=== PATIENT | male | born 1955 | race Caucasian/White ===

== ENCOUNTER → 2016-07-15 | Outpatient (CLI) | payer OTHER ==
[~2016-07-15] MED LIST: NOHOMEMEDICATIONS
[2016-07-15 11:29] LABS: CREATININE 1.2 mg/dL (0.7-1.3)
== END ==
LOC: ULTRA 07-14 15:49
PROVIDERS: Family Medicine
DX: R31.9 Hematuria, unspecified (principal); N28.1 Cyst of kidney, acquired; I10 Essential (primary) hypertension; I70.1 Atherosclerosis of renal artery; R10.9 Unspecified abdominal pain; N50.819 Testicular pain, unspecified

== ENCOUNTER → 2016-08-11 | Outpatient (CLI) | payer OTHER | LOC: ULTRA 13:59 | DX: K40.90 Unilateral inguinal hernia, without obstruction or gangrene, not specified as recurrent (principal); R10.32 Left lower quadrant pain ==

== ENCOUNTER → 2016-08-17 | Outpatient (CLI) | payer OTHER | LOC: MRI 02:49 | DX: R10.30 Lower abdominal pain, unspecified (principal); N50.811 Right testicular pain ==

== ENCOUNTER → 2018-05-10 | Outpatient (CLI) | payer OTHER | LOC: RAD 11:14 | DX: R05 Cough (principal) ==

== ENCOUNTER → 2018-06-06 | Outpatient (CLI) | payer OTHER | LOC: CAT 11:51 | DX: Z13.6 Encounter for screening for cardiovascular disorders (principal); E78.00 Pure hypercholesterolemia, unspecified; Z82.49 Family history of ischemic heart disease and other diseases of the circulatory system ==

== ENCOUNTER → 2018-06-21 | Outpatient (CLI) | payer OTHER ==
--- NOTE | ~2018-06-21 | MCT ---
[facility] [place] [address] METHACHOLINE CHALLENGE TEST Name: KRISTIE DUTTON Room #: REG HORTENCIA Campos#: [id number] ������������������ Admission: 06/21/18 ������������������ Attend Phys: Juan Rinaldi MD Discharge: ������������������ Date of : 53 Report #: [id number] THIS REPORT FOR: //name// COPIES FOR: AGE:������ 62 SEX/RACE:� M/C Height: 69 in Exam Date: 06/21/18 Weight: 165 lbs BTPS: X >> PRE BRONCHODILATOR: PREDICTED BEST %PRED FORCED VITAL CAPACITY (FRC) 4.11 L 4.83 LPM 117 % FORCED EXP VOL/SEC (FEV1) 3.28 L 3.48 FEV/FVC 106 % MAX MID-EXP FLOW (FEF 25-75) 3.33 L/SEC 2.57 L/SEC 77 % PEAK EXP FLOW RATE (FEF MAX) 8.27 L/MIN 8.08 L/MIN MED-VC RATIO (FEF 50/FEF 50) .09 Baseline: Phenol Saline Level 1: 0.025 mg/ml BEST %PRED %CHANGE BEST %PRED %CHANGE FVC 4.56 L 111 % -6 % FVC 4.66 L 113 % 2 % FEV1 3.17 L 97 % -9 % FEV1 3.23 L 98 % 2 % Level 2: 0.25 mg/ml Level 3: 2.5 mg/ml BEST %PRED %CHANGE BEST %PRED %CHANGE FVC 4.79 L 117 % 5 % FVC 4.88 L 119 % 7 % FEV1 3.29 L 100 % 4 % FEV1 3.32 L 101 % 5 % . Level 4: 10 mg/ml Level 5: 25 mg/ml BEST %PRED %CHANGE BEST %PRED %CHANGE FVC 4.70 L 114 % 3 % FVC 4.85 L 118 % 6 % FEV1 3.29 L 100 % 4 % FEV1 3.29 L 100 % 4 % Post Bronchodilator: 1st Treatment Post Bronchodilator: 2nd Treatment BEST %PRED %CHANGE BEST %PRED %CHANGE FVC 4.48 L 109 % -2 % FVC L % % FEV1 3.31 L 101 % 4 % FEV1 L % % Post Bronchodilator: 3rd Treatment BEST %PRED %CHANGE FVC L % % [address] [address] METHACHOLINE CHALLENGE TEST Name: KRISTIE DUTTON Room #: REG CLTri[facility]City [facility] CenterPhi.#: [id number] ������������������ Admission: 06/21/18 ������������������ Attend Phys: Juan Rinaldi MD Discharge: ������������������ Date of : 53 Report #: [id number] FEV1 L % % >> INTERPRETATION: CC: Juan Ni DATE OF SERVICE: 06/21/2018 METHACHOLINE CHALLENGE TEST Increasing doses of methacholine were utilized per protocol. Initial FEV1 was 3.48 liters and 106% predicted. With increasing doses of methacholine, there was no significant decline in pulmonary function. With increasing doses of methacholine, his FEV1 remained 3.29 liters (100%). IMPRESSION: Negative methacholine challenge test. ��������������������������������������������� ���������������������������������������� By: ��������������������������������������������� Juan Rinaldi MD /nt
== END ==
LOC: PUL 09:51
DX: R05 Cough (principal)

== ENCOUNTER 2018-08-25 15:15 | Emergency (ER) | payer OTHER ==
[~2018-08-25] VITALS: Ht 175.3 cm; Wt 74.8 kg
[2018-08-25] MEDS ORDERED: LIDOCAINE1 EACH TRANSDERM (16:26)
[2018-08-25] MEDS ORDERED: NAPROSYN500 MG PO (16:26)
[2018-08-25] MEDS ORDERED: HYDROCODONE-AP1 EAC6 PO (16:26)
[2018-08-25 17:18] VITALS: BP 122/74
== END 2018-08-25 16:30 | disposition home or self-care (01) ==
LOC: ER 15:15
DX: S20.212A Contusion of left front wall of thorax, initial encounter (principal); X50.1XXA Overexertion from prolonged static or awkward postures, initial encounter; Y92.89 Other specified places as the place of occurrence of the external cause; Y93.89 Activity, other specified; Y99.8 Other external cause status

== ENCOUNTER → 2020-02-11 | Outpatient (CLI) | payer OTHER ==
[~2020-02-11] MED LIST changes: +HYDROCODONE-AP1 EAC6 PO; +LIDOCAINE1 EACH TRANSDERM; +NAPROSYN500 MG PO
[2020-02-11 11:58] LABS: ABSOLUTE NEUTROPHILS 3.1 thou/uL (1.4-8.2); BASOPHILS 0.5 % (0.0-2.0); EOSINOPHILS 2.5 % (0.0-3.0); HEMATOCRIT 46.2 % (42.0-52.0); HEMOGLOBIN 16.1 gm/dL (14.0-18.0); LYMPHOCYTES 32.3 % (24.0-44.0); MCH 31.5 pg (26.0-34.0); MCHC 34.9 g/dL (28.0-37.0); MCV 90.3 fL (80.0-100.0); MONOCYTES 10.6 % (1.0-8.0); PLATELET COUNT 196 thou/uL (150-400); POLYS 54.1 % (36.0-66.0); RBC 5.12 mil/uL (4.50-6.00); RDW 12.7 % (10.5-14.5); WBC 5.7 thou/uL (4.0-11.0)
[2020-02-11 12:34] LABS: ANION GAP 7 mmol/L (7-16); BUN 16 mg/dL (7-18); CALCIUM 8.7 mg/dL (8.5-10.1); CHLORIDE 105 mmol/L (98-107); CHOLESTEROL 177 mg/dL (<200); CO2 28 mmol/L (21-32); CREATININE 1.2 mg/dL (0.7-1.3); GLUCOSE 96 mg/dL (74-106); HDL CHOLESTEROL 53 mg/dL (>40); LDL CHOLESTEROL 111 mg/dL (<100); POTASSIUM 4.1 mmol/L (3.5-5.1); SGOT 24 U/L (15-37); SGPT 47 U/L (30-65); SODIUM 140 mmol/L (136-145); TC:HDL 3.3 Ratio (Not establshd); TOTAL BILIRUBIN 0.8 mg/dL (0.2-1.0); TOTAL PROTEIN 6.6 g/dL (6.4-8.2); TRIGLYCERIDE 67 mg/dL (<150); VLDL 13 mg/dL (<40)
== END ==
LOC: LABMALL 11:24
PROVIDERS: ATTEND Family Medicine
DX: E78.5 Hyperlipidemia, unspecified (principal); R53.82 Chronic fatigue, unspecified; E55.9 Vitamin D deficiency, unspecified